=== PATIENT | female | born 1945 | race African-American/Black ===

== ENCOUNTER 2025-02-23 11:00 | Day surgery (SDC) | payer OTHER ==
[2025-02-22 10:26] LABS: Absolute Lymphocytes (CBC) 2.0 K/uL (0.7-4.9); Hematocrit 39.8 % (36.0-45.0); Hemoglobin 12.9 g/dL (12.0-15.0); MCH 27.4 pg (27.0-35.0); MCHC 32.5 g/dL (32.0-36.0); MCV 84.3 fL (80-100); MPV 9.3 fL (7.6-11.3); Nucleated RBC Absolute Count 0.0 (0-0); Nucleated Red Blood Cells % 0.2 % (0-0); RBC Red Blood Cell Count 4.72 M/uL (3.86-4.86); White Blood Count 6.80 thou/uL (4.3-10.9)
[2025-02-22 10:36] LABS: PT Prothrombin Time 12.1 SECONDS (10-13.0); PTT, Activated Partial Thromb 29.6 SECONDS (27.2-37.4); Protime INR 1.07
[2025-02-22 10:44] LABS: Anion Gap 6.8 mEq/L (5.0-15.0); BUN Blood Urea Nitrogen 15.0 mg/dL (7-18); Glucose Level 69.0 mg/dL (74-106); Potassium 3.8 mEq/L (3.5-5.1)
--- NOTE | 2025-02-22 11:40 | RAD REPORT ---
Procedure: Chest Pa And Lat (2 Views) HISTORY: Preop for cardiac catheterization COMPARISON: 2011 FINDINGS: The lungs appear clear of acute infiltrate. No significant pleural effusion noted. The heart is mildly enlarged. Aorta tortuous/ectatic. IMPRESSION: No acute abnormality is displayed.
[2025-02-23] MEDS ORDERED: FENTANYL CITR 100 MCG/2 ML ONE (11:47)
[2025-02-23] MEDS ORDERED: MIDAZOLAM HCL 2 MG/2 ML INJ ONE (11:47)
[2025-02-23] MEDS ORDERED: NA CHLORIDE 0.9% 500 ML ONE (11:48)
[2025-02-23] MEDS ORDERED: VERAPAMIL HCL 10 MG/4 ML VIAL IV ONE (11:50)
[2025-02-23] MEDS ORDERED: CLOPIDOGREL 75 MG TABLET ONE (11:50)
[2025-02-23] MEDS ORDERED: HEPA 1000U/500MLS 2,000 UNIT/1,000 ML BAG IV ONE (11:50)
[2025-02-23] MEDS ORDERED: HEPARIN 5000 UNIT/ML 1 ML VIAL ONE (11:50)
[2025-02-23] MEDS ORDERED: LIDOCAINE 1% 20 ML MDV ONE (11:50)
[2025-02-23] MEDS ORDERED: HEPARIN 10,000 UNIT/10 ML VIAL IV ONE (11:50)
[2025-02-23] MEDS ORDERED: ASPIRIN 325 MG TAB ONE (11:51)
[2025-02-23] MEDS ORDERED: TICAGRELOR 90 MG TABLET PO ONE (11:51)
[2025-02-23] MEDS ORDERED: ATROPINE SULF 1 MG/10 ML SYR IV ONE (11:51)
[2025-02-23] MEDS ORDERED: HYDRALAZINE HCL 20 MG/ML VIAL ONE (12:50)
[2025-02-23] MEDS: HYDRALAZINE HCL 20 MG/ML VIAL ONE (14:07)
[2025-02-23] MEDS: METOPROLOL TAR 25 MG TAB PO ONE (14:30)
--- NOTE | 2025-02-23 14:50 | OP ---
Date of Procedure: 02/23/2025 Surgeon: JASON PALACIOS Procedure Performed: Selective coronary angiogram. Indication: Severe before aortic valve replacement. Access: Right radial artery 6-Afghan closed with TR band. Complications: None. Bleeding: Less than 50 mL. Anesthesia: Total sedation time was 45 minutes, used fentanyl and Versed. Description Of Procedure: After risks, benefits, and alternatives were explained, the patient agreed to procedure and signed informed consent. [facility], prepped and draped in usual sterile fashion. Then, I accessed right radial artery using pedi atric micropuncture kit, ultrasound guidance, and fluoroscopy, placed 6-Afghan slender sheath and too k 5-Afghan Forbes 4.0 catheter over a J-wire into the aortic root, engaged left main, and took standar d views and then in the RCA, took standard views, and removed the catheter and the sheath, placed TR band with good hemostasis. Findings: 1. Left main; very large and normal. 2. LAD; moderate-sized vessel, proximal luminal irregularities. Diagonal branches with luminal irre gularities. In the mid LAD, there is focal 50% stenosis. It is rather small LAD comparing to the le ft circumflex. 3. Left circumflex; large and codominant, proximal 40%, mid to distal 40%, OM branch is with luminal irregularities. 4. 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 Conclusion: Moderate coronary artery disease, multivessel. Recommendations: Proceed with TAVR. SR/MODL Voice ID: [id number] Report ID: [id number]
[2025-02-23] MEDS: AMLODIPINE 5 MG TAB PO ONE (15:28)
[2025-02-23] MEDS: BENAZEPRIL 20 MG TAB PO ONE (15:28)
[2025-02-23 15:51] VITALS: BP 168/72; O2SAT 98
== END 2025-02-23 16:04 | disposition home or self-care (01) ==
LOC: CCL 11:00
PROVIDERS: ATTEND Internal Medicine
DX: I35.0 Nonrheumatic aortic (valve) stenosis (principal); I25.10 Atherosclerotic heart disease of native coronary artery without angina pectoris; I25.41 Coronary artery aneurysm; I10 Essential (primary) hypertension; E78.5 Hyperlipidemia, unspecified; Z79.82 Long term (current) use of aspirin; Z79.899 Other long term (current) drug therapy; Z82.49 Family history of ischemic heart disease and other diseases of the circulatory system
CPT/HCPCS: 93005; 85025; 80048; 36415; 85610; 85730; 71046; 93454; 76937; C1893; Q9966; J1644 ×2; J0360 ×2; J2003; J2250; J3010; J7040; 99152; J0461